=== PATIENT | male | born 1935 | race Caucasian/White ===

== ENCOUNTER 2017-02-02 18:07 | Emergency (ER) | payer MEDICARE, OTHER ==
[~2017-02-02] VITALS: Ht 162.6 cm; Wt 68.9 kg
[~2017-02-02 18:07] MED LIST: ALBUTEROL1.25 MG/3 INH; ASPIRIN325 M3 PO; ATENOLOL25 MG PO; ATROVENT1 PUFF INH; AUGMENTIN 875-1 EAC2 PO; BABY ASPIRIN81 MG PO; BACTRIM DS TAB1 EAC2 PO; CARDURA1 M1 PO; CARDURA4 MG PO; CEFADROXIL500 M1 PO; CEFTAZIDIME IV; CYCLOBENZAPRINE5 M1 PO; DALIRESP500 MC1 PO; DOXAZOSIN MESYLA2 MG PO; FLOMAX0.4 M1 PO; LOW DOSE ASPIRI81 M1 PO; LOW DOSE ASPIRI81 M3 PO; METROCREAM45 GM TP; METRONIDAZOLE45 G2 TP; METRONIDAZOLE45 GM TP; MILK OF MAGNESIA PO; MUCINEX DM ER1 EACH PO; MUCINEX DM PO; NORCO 5-325 TA1 EACH PO; NYQUIL D COLD295 M1 PO; OXYGEN IH; PREDNISONE10 M1; PREDNISONE10 M1 PO; PROSCAR5 M1 PO; QUILL; SENOKOT-S TABL1 EACH PO; SPIRIVA18 MC1 IH; SPIRIVA18 MCG IH; SUDAFED 12 HOU120 MG PO; SYMBICORT 160-1 PUFF INH; SYMBICORT 160-4.6 GM IH; SYMBICORT 80-46.9 GM IH; TENORMIN25 M1 PO; TYLENOL325 M2 PO; ZEBETA5 M2 PO; [UNRECOGNIZED DRUG - MIXTURE]
== END 2017-02-02 21:10 ==
LOC: EDMED 18:07
DX: Z48.00 Encounter for change or removal of nonsurgical wound dressing (principal); I10 Essential (primary) hypertension; J44.9 Chronic obstructive pulmonary disease, unspecified; Z88.1 Allergy status to other antibiotic agents; Z87.891 Personal history of nicotine dependence